=== PATIENT | male | born 1940 | race Caucasian/White ===

== ENCOUNTER 2018-05-19 13:58 | Inpatient (IN) | payer MEDICARE ==
[~2018-05-19] VITALS: Ht 172.7 cm; Wt 63.8 kg
[~2018-05-19 13:58] MED LIST: AMLO-150 PO; CARV12.52 PO; CLON0.2T PO; HYDR-3245 PO; IRBE300T16 PO; TIZA2CAP2 PO
[2018-05-19] MEDS ORDERED: hydrALAzine 20 MG/ML, 1ML IV ONE (14:30)
[2018-05-19] MEDS ORDERED: hydrALAzine 20 MG/ML, 1ML ONE (14:53)
[2018-05-19 14:54] LABS: BASOPHILS % (AUTO) 0 % (0-1); EOSINOPHILS # (AUTO) 0.03 x10^3/uL (0-0.4); EOSINOPHILS % (AUTO) 0 % (1-7); LYMPHOCYTES # (AUTO) 0.85 x10^3/uL (1-3.4); LYMPHOCYTES % (AUTO) 6 % (22-44); MD NO; MEAN CORPUSCULAR HEMOGLOBIN 28.6 pg (27.5-34.5); MEAN CORPUSCULAR HGB CONC 33.1 g/dL (33.2-36.2); MEAN CORPUSCULAR VOLUME 86.5 fL (81-97); MEAN PLATELET VOLUME 8.6 fL (7.4-10.4); MONOCYTES % (AUTO) 1 % (2-9); NEUTROPHILS # (AUTO) 12.67 x10^3/uL (1.8-6.8); NEUTROPHILS % (AUTO) 93 % (42-75); PLATELET COUNT 152 x10^3/uL (130-400); RED BLOOD COUNT 5.43 x10^6/uL (4.38-5.82); RED CELL DISTRIBUTION WIDTH 15.6 % (9.4-14.8)
[2018-05-19 14:59] LABS: ALANINE AMINOTRANSFERASE 19 U/L (12-78); ALBUMIN 3.6 g/dL (3.4-5.0); ANION GAP 9 mmol/L (5-15); CALCIUM 8.1 mg/dL (8.5-10.1); CHLORIDE 109 mmol/L (98-107)
[2018-05-19 15:04] LABS: ALKALINE PHOSPHATASE 106 U/L (45-117); BILIRUBIN,TOTAL 0.5 mg/dL (0.2-1.0); TOTAL PROTEIN 7.2 g/dL (6.4-8.2); TROPONIN I < 0.015 ng/mL (0.000-0.045)
[2018-05-19 15:42] LABS: INTERNATIONAL NORMALIZED RATIO 1.03 (0.93-1.1); PROTHROMBIN TIME 10.9 Seconds (9.6-11.5)
[2018-05-19] MEDS ORDERED: TIZANIDINE 2MG TABLET PO PRN (16:30)
[2018-05-19] MEDS ORDERED: LABETALOL 5MG/ML, 20ML IV PRN (17:00)
[2018-05-19 17:11] VITALS: BP 148/74
[2018-05-19 17:14] LABS: HEMOGLOBIN A1C 5.9 % (4.2-6.3)
[2018-05-19 19:00] VITALS: BP 163/82
[2018-05-19 20:58] VITALS: BP 173/91
[2018-05-19] MEDS: CARVEDILOL 12.5 MG TABLET PO SCH (20:59)
[2018-05-19] MEDS ORDERED: TEMPLATE NON-FORMULARY MED. (Carvedilol** 12.5 MG) PO SCH (21:00)
[2018-05-19] MEDS: HYDROcodone/APAP 10/325 MG TABLET PO PRN (21:13)
[2018-05-19] MEDS ORDERED: CALCIUM CARBONATE 500 MG TAB.CHEW PO PRN (21:30)
[2018-05-19 22:31] VITALS: BP 140/79
[2018-05-19 23:42] VITALS: BP 123/75
[2018-05-20] VITALS (7 sets, daily range): BP systolic 107–178; BP diastolic 60–93
[2018-05-20 04:58] LABS: BASOPHILS # (AUTO) 0.02 x10^3/uL (0-0.1); BASOPHILS % (AUTO) 0 % (0-1); EOSINOPHILS # (AUTO) 0.17 x10^3/uL (0-0.4); EOSINOPHILS % (AUTO) 1 % (1-7); LYMPHOCYTES # (AUTO) 1.33 x10^3/uL (1-3.4); LYMPHOCYTES % (AUTO) 10 % (22-44); MD NO; MEAN CORPUSCULAR HEMOGLOBIN 28.8 pg (27.5-34.5); MEAN CORPUSCULAR HGB CONC 33.2 g/dL (33.2-36.2); MEAN CORPUSCULAR VOLUME 86.8 fL (81-97); MEAN PLATELET VOLUME 7.9 fL (7.4-10.4); MONOCYTES # (AUTO) 1.15 x10^3/uL (0.2-0.8); MONOCYTES % (AUTO) 9 % (2-9); NEUTROPHILS # (AUTO) 10.53 x10^3/uL (1.8-6.8); NEUTROPHILS % (AUTO) 80 % (42-75); PLATELET COUNT 240 x10^3/uL (130-400); RED BLOOD COUNT 5.12 x10^6/uL (4.38-5.82); RED CELL DISTRIBUTION WIDTH 15.8 % (9.4-14.8)
[2018-05-20 05:07] LABS: ALBUMIN 3.1 g/dL (3.4-5.0); ANION GAP 11 mmol/L (5-15); CALCIUM 8.1 mg/dL (8.5-10.1); CHLORIDE 111 mmol/L (98-107)
[2018-05-20 05:21] LABS: ALANINE AMINOTRANSFERASE 15 U/L (12-78); ALKALINE PHOSPHATASE 93 U/L (45-117); BILIRUBIN,TOTAL 0.7 mg/dL (0.2-1.0); CHOL/HDL RATIO 3.3; CHOLESTEROL, TOTAL 153 mg/dL (140-239); CREATININE 1.13 mg/dL (0.7-1.3); HDL CHOL % 30 % (26-37); HDL CHOLESTEROL (DIRECT) 46 mg/dL (40-60); LDL CHOLESTEROL,CALCULATED 78 mg/dL (54-169); LDL/HDL RATIO 1.7 (0.5-3.0); THYROID STIMULATING HORMONE 0.527 mIU/L (0.358-3.740); TOTAL PROTEIN 6.3 g/dL (6.4-8.2); TRIGLYCERIDES 145 mg/dL (50-200); VLDL CHOLESTEROL 29 mg/dL (0-25)
[2018-05-20] MEDS: AMLODIPINE 5 MG TABLET PO SCH (08:34)
[2018-05-20] MEDS: CARVEDILOL 12.5 MG TABLET PO SCH ×2 (08:34→19:47)
[2018-05-20] MEDS: IRBESARTAN 300 MG TABLET PO SCH (08:35)
[2018-05-20] MEDS ORDERED: ASPIRIN 81 MG TABLET CHEW PO/NG SCH (09:00)
[2018-05-20] MEDS ORDERED: ASPI325T17 PO (11:06)
[2018-05-20] MEDS ORDERED: ATOR10TA9 PO (11:06)
[2018-05-20] MEDS ORDERED: MIDAZOLAM 1 MG/ML, 5ML ONE (11:25)
[2018-05-20] MEDS ORDERED: NALOXONE 1 MG/ML, 2ML ONE (11:25)
[2018-05-20] MEDS ORDERED: FLUMAZENIL 0.1 MG/1 ML, 5ML ONE (11:25)
[2018-05-20] MEDS ORDERED: FENTANYL PF 100 MCG/2ML ONE ×2 (11:25)
[2018-05-20] MEDS: HYDROcodone/APAP 10/325 MG TABLET PO PRN (20:07)
[2018-05-20 20:57] LABS: MICROSCOPIC NOT IND
[2018-05-20] MEDS ORDERED: ATORVASTATIN 40 MG TABLET PO SCH (21:00)
[2018-05-20 21:07] LABS: CULTURE INDICATED? NO
[2018-05-21 02:58] VITALS: BP 147/78
[2018-05-21 05:54] LABS: BASOPHILS # (AUTO) 0.06 x10^3/uL (0-0.1); BASOPHILS % (AUTO) 1 % (0-1); EOSINOPHILS % (AUTO) 3 % (1-7); LYMPHOCYTES # (AUTO) 1.84 x10^3/uL (1-3.4); LYMPHOCYTES % (AUTO) 21 % (22-44); MD NO; MEAN CORPUSCULAR HGB CONC 33.5 g/dL (33.2-36.2); MEAN CORPUSCULAR VOLUME 86.6 fL (81-97); MEAN PLATELET VOLUME 8.1 fL (7.4-10.4); MONOCYTES # (AUTO) 0.96 x10^3/uL (0.2-0.8); MONOCYTES % (AUTO) 11 % (2-9); NEUTROPHILS # (AUTO) 5.79 x10^3/uL (1.8-6.8); NEUTROPHILS % (AUTO) 65 % (42-75); PLATELET COUNT 220 x10^3/uL (130-400); RED BLOOD COUNT 5.07 x10^6/uL (4.38-5.82); RED CELL DISTRIBUTION WIDTH 15.5 % (9.4-14.8)
[2018-05-21] MEDS ORDERED: ASPIRIN 325 MG TABLET EC PO SCH (06:00)
[2018-05-21 06:42] VITALS: BP 188/101
[2018-05-21] MEDS: IRBESARTAN 300 MG TABLET PO SCH (08:03)
[2018-05-21] MEDS: AMLODIPINE 5 MG TABLET PO SCH (08:03)
[2018-05-21] MEDS: CARVEDILOL 12.5 MG TABLET PO SCH (08:04)
[2018-05-21 09:13] VITALS: BP 127/82
[2018-05-21] MEDS ORDERED: LORazepam 2 MG/ML, 1ML IVPush ONE (11:30)
[2018-05-21] MEDS ORDERED: OXYcodone IR 5MG TABLET PO ONE (11:30)
[2018-05-21 13:31] VITALS: BP 149/90
[2018-05-21] MEDS ORDERED: IRBE150T25 PO (16:30)
[2018-05-21] MEDS ORDERED: AMLO-150 PO (16:30)
[2018-05-21] MEDS ORDERED: ATOR40TA78 PO (16:30)
== END 2018-05-21 17:43 | disposition home or self-care (01) | DRG 69 ==
LOC: ED 14:46 → EDIP 15:45 → 4EST 16:47
PROVIDERS: ADMIT Internal Medicine; ATTEND Family Medicine
DX: G45.9 Transient cerebral ischemic attack, unspecified (principal); D68.69 Other thrombophilia; I16.9 Hypertensive crisis, unspecified; I48.91 Unspecified atrial fibrillation; G89.29 Other chronic pain; R73.9 Hyperglycemia, unspecified; M54.10 Radiculopathy, site unspecified; Z96.659 Presence of unspecified artificial knee joint; I11.9 Hypertensive heart disease without heart failure; R47.1 Dysarthria and anarthria; M48.02 Spinal stenosis, cervical region; E78.5 Hyperlipidemia, unspecified; Z90.79 Acquired absence of other genital organ(s); Z85.46 Personal history of malignant neoplasm of prostate; Z87.891 Personal history of nicotine dependence
CPT/HCPCS: 36415; 70450; 70551; 71045; 72141; 80053; 80061; 81003; 83036; 84443; 84484; 85025; 85610; 85730; 93005; 93306; 93880; 96374; 99156; 99157; 99285; G0378; J2250; J3010; J0360; J2060; J2310

== ENCOUNTER 2018-06-18 23:09 | Emergency (ER) | payer MEDICARE ==
[~2018-06-18 23:09] MED LIST changes: +ASPI325T17 PO; +ATOR10TA9 PO; +ATOR40TA78 PO; +IRBE150T25 PO
--- NOTE | 2018-06-18 23:33 | NUR ---
BIB [facility] FOR STROKE LIKE SYMPTOMS PER FAMILY, PT WAS FALLING ASLEEP AND WOKE HIM UP, HE HAD SLURRED SPEECH AND WAS NOT ALERT/ORIENTED. PT NOW SPEAKING AND ALERT. EKG IN PROCESS, PER EMS S/S RESOLVED. PT HAS RESIDUAL LEFT SIDE DRIFT/WEAKNESS IN UPPER EXT/
--- NOTE | 2018-06-18 23:44 | NUR ---
report to steffanie brunson at bs.
--- NOTE | 2018-06-18 23:47 | NUR ---
Recieved bedside report from BOBBY Stark. All questions answered. Assuming care of this pt. Pt is AOX4 at this time. Pt has mild weakness of left upper extremity that is pt's baseline from his stroke one month ago. Pt's at bedside. Provided pt warm blankets and call light within reach. No needs requested at this time.
[2018-06-18 23:49] LABS: BASOPHILS # (AUTO) 0.01 x10^3/uL (0-0.1); BASOPHILS % (AUTO) 0 % (0-1); EOSINOPHILS # (AUTO) 0.43 x10^3/uL (0-0.4); EOSINOPHILS % (AUTO) 4 % (1-7); LYMPHOCYTES # (AUTO) 1.74 x10^3/uL (1-3.4); LYMPHOCYTES % (AUTO) 14 % (22-44); MD NO; MEAN CORPUSCULAR HEMOGLOBIN 29.3 pg (27.5-34.5); MEAN CORPUSCULAR HGB CONC 34.3 g/dL (33.2-36.2); MEAN CORPUSCULAR VOLUME 85.6 fL (81-97); MEAN PLATELET VOLUME 7.1 fL (7.4-10.4); MONOCYTES # (AUTO) 1.44 x10^3/uL (0.2-0.8); MONOCYTES % (AUTO) 12 % (2-9); NEUTROPHILS # (AUTO) 8.47 x10^3/uL (1.8-6.8); NEUTROPHILS % (AUTO) 70 % (42-75); PLATELET COUNT 236 x10^3/uL (130-400); RED BLOOD COUNT 5.05 x10^6/uL (4.38-5.82); RED CELL DISTRIBUTION WIDTH 15.1 % (9.4-14.8)
[2018-06-18 23:59] LABS: INTERNATIONAL NORMALIZED RATIO 0.94 (0.93-1.1)
[2018-06-19 00:40] VITALS: BP 133/90
--- NOTE | 2018-06-19 00:40 | NUR ---
Patient and spouse given discharge instructions and they have confirmed that they understand the instructions. Patient ambulatory with steady gait. Pt's neighbors came to ED to drive pt and his spouse home. Pt left with discharge paperwork and all personal belongings.
== END 2018-06-19 00:42 | disposition home or self-care (01) ==
LOC: ED 23:16
DX: R47.81 Slurred speech (principal); I10 Essential (primary) hypertension; Z86.73 Personal history of transient ischemic attack (TIA), and cerebral infarction without residual deficits
CPT/HCPCS: 36415; 70450; 80047; 85025; 85610; 85730; 93005; 99284

== ENCOUNTER → 2018-07-01 | Outpatient (CLI) | payer MEDICARE ==
[~2018-07-01] MED LIST changes: +ATOR40TA PO; +FENO105T3 PO; +PRED5TAB PO; +ZOLP10TA PO
[2018-07-01 12:16] LABS: BASOPHILS # (AUTO) 0.04 x10^3/uL (0-0.1); BASOPHILS % (AUTO) 0 % (0-1); EOSINOPHILS % (AUTO) 3 % (1-7); LYMPHOCYTES # (AUTO) 1.68 x10^3/uL (1-3.4); LYMPHOCYTES % (AUTO) 12 % (22-44); MD NO; MEAN CORPUSCULAR HEMOGLOBIN 28.8 pg (27.5-34.5); MEAN CORPUSCULAR HGB CONC 33.4 g/dL (33.2-36.2); MEAN CORPUSCULAR VOLUME 86.2 fL (81-97); MONOCYTES # (AUTO) 1.37 x10^3/uL (0.2-0.8); MONOCYTES % (AUTO) 10 % (2-9); NEUTROPHILS # (AUTO) 10.06 x10^3/uL (1.8-6.8); NEUTROPHILS % (AUTO) 74 % (42-75); PLATELET COUNT 289 x10^3/uL (130-400); RED BLOOD COUNT 5.67 x10^6/uL (4.38-5.82); RED CELL DISTRIBUTION WIDTH 15.7 % (9.4-14.8)
[2018-07-01 12:21] LABS: MICROSCOPIC INDICATED
[2018-07-01 12:24] LABS: INTERNATIONAL NORMALIZED RATIO 0.98 (0.93-1.1); PROTHROMBIN TIME 10.4 Seconds (9.6-11.5)
[2018-07-01 12:27] LABS: ALANINE AMINOTRANSFERASE 24 U/L (12-78); ALBUMIN 3.6 g/dL (3.4-5.0); ANION GAP 8 mmol/L (5-15); CALCIUM 8.6 mg/dL (8.5-10.1); CHLORIDE 109 mmol/L (98-107)
[2018-07-01 12:29] LABS: ALKALINE PHOSPHATASE 123 U/L (45-117); BILIRUBIN,TOTAL 0.6 mg/dL (0.2-1.0); TOTAL PROTEIN 7.6 g/dL (6.4-8.2)
[2018-07-01 12:53] LABS: CULTURE INDICATED? NO
== END | disposition home or self-care (01) ==
LOC: STAR 11:00
PROVIDERS: ATTEND Neurological Surgery
DX: M47.812 Spondylosis without myelopathy or radiculopathy, cervical region (principal)
CPT/HCPCS: 36415; 71046; 72050; 80053; 81001; 85025; 85610; 85730; 93005

== ENCOUNTER 2018-07-14 07:19 | Inpatient (IN) | payer MEDICARE ==
[~2018-07-14] VITALS: Ht 177.8 cm; Wt 65.5 kg
[~2018-07-14 07:19] MED LIST changes: +BACITRACIN 50,000 UNIT ONE; +BUPIVACAINE/PF 0.25% ONE; +BUPIVACAINE/PF 0.5% ONE; +BUPIVACAINE/PF-EPI 0.5% 1:200K ONE; +EPINEPHRINE 1 MG/ML, 1ML ONE; +THROMBIN 5,000 UNIT VIAL TP ONE
[2018-07-14] MEDS ORDERED: LACTATED RINGERS 1,000 ML IV SCH (08:22)
[2018-07-14 08:57] LABS: BASOPHILS # (AUTO) 0.09 x10^3/uL (0-0.1); BASOPHILS % (AUTO) 1 % (0-1); EOSINOPHILS # (AUTO) 0.22 x10^3/uL (0-0.4); EOSINOPHILS % (AUTO) 2 % (1-7); LYMPHOCYTES # (AUTO) 1.06 x10^3/uL (1-3.4); LYMPHOCYTES % (AUTO) 10 % (22-44); MD NO; MEAN CORPUSCULAR HEMOGLOBIN 28.6 pg (27.5-34.5); MEAN CORPUSCULAR HGB CONC 33.2 g/dL (33.2-36.2); MEAN CORPUSCULAR VOLUME 86.2 fL (81-97); MONOCYTES # (AUTO) 1.26 x10^3/uL (0.2-0.8); MONOCYTES % (AUTO) 12 % (2-9); NEUTROPHILS # (AUTO) 7.92 x10^3/uL (1.8-6.8); NEUTROPHILS % (AUTO) 75 % (42-75); PLATELET COUNT 236 x10^3/uL (130-400); RED CELL DISTRIBUTION WIDTH 15.5 % (9.4-14.8)
[2018-07-14] MEDS ORDERED: GABAPENTIN 300 MG CAPSULE PO ONE (09:00)
[2018-07-14] MEDS ORDERED: ACETAMINOPHEN 500 MG TABLET PO ONE (09:00)
[2018-07-14 09:09] LABS: ALANINE AMINOTRANSFERASE 17 U/L (12-78); ALBUMIN 3.1 g/dL (3.4-5.0); ANION GAP 7 mmol/L (5-15); CALCIUM 8.4 mg/dL (8.5-10.1); CHLORIDE 112 mmol/L (98-107); CREATININE 1.18 mg/dL (0.7-1.3)
[2018-07-14 09:11] LABS: ALKALINE PHOSPHATASE 95 U/L (45-117); TOTAL PROTEIN 6.1 g/dL (6.4-8.2)
[2018-07-14] MEDS ORDERED: PROPOFOL 10 MG/ML, 20ML ONE (11:44)
[2018-07-14] MEDS ORDERED: FENTANYL PF 250 MCG/5ML ONE (13:59)
[2018-07-14] MEDS ORDERED: MIDAZOLAM 1 MG/ML, 2ML ONE (13:59)
[2018-07-14] MEDS ORDERED: ACETAMINOPHEN 500 MG TABLET ONE (14:29)
[2018-07-14] MEDS ORDERED: GABAPENTIN 300 MG CAPSULE ONE (14:29)
[2018-07-14] MEDS ORDERED: DIGOXIN 0.25 MG/ML, 2ML ONE (15:39)
[2018-07-14] MEDS ORDERED: DIGOXIN 0.25 MG/ML, 2ML IVPush ONE (16:30)
[2018-07-14] MEDS ORDERED: MAGNESIUM SULFATE PMX 2GM/50ML 50 ML IV ONE (16:30)
[2018-07-14 16:48] VITALS: BP 126/83
[2018-07-14] MEDS ORDERED: GABAPENTIN 300 MG CAPSULE PO PRN (17:30)
[2018-07-14] MEDS ORDERED: ZOLPIDEM 10MG TABLET PO PRN (17:30)
[2018-07-14] MEDS ORDERED: BACLOFEN 10 MG TABLET PO PRN (17:30)
[2018-07-14] MEDS ORDERED: BISACODYL 10 MG SUPP PR PRN (17:30)
[2018-07-14] MEDS ORDERED: DOCUSATE 100 MG CAPSULE PO PRN (17:30)
[2018-07-14] MEDS ORDERED: hydrALAzine 20 MG/ML, 1ML IVPush PRN (17:30)
[2018-07-14] MEDS ORDERED: POLYETHYLENE GLYCOL 17 GM PACKET PO PRN (17:30)
[2018-07-14] MEDS ORDERED: ENALAPRILAT 1.25 MG/ML, 2ML IVPush PRN (17:30)
[2018-07-14] MEDS: SOTALOL 120MG TABLET PO SCH (17:31)
[2018-07-14 17:40] LABS: INTERNATIONAL NORMALIZED RATIO 1.04 (0.93-1.1)
[2018-07-14 20:42] VITALS: BP 132/85
[2018-07-14] MEDS: IRBESARTAN 150 MG TABLET PO SCH (20:46)
[2018-07-14] MEDS: CARVEDILOL 12.5 MG TABLET PO SCH (20:46)
[2018-07-14] MEDS: AMLODIPINE 5 MG TABLET PO SCH (20:47)
[2018-07-14] MEDS: APIXABAN 5 MG TABLET PO SCH (21:49)
[2018-07-14] MEDS: ATORVASTATIN 40 MG TABLET PO SCH (21:49)
[2018-07-15 03:50] VITALS: BP 124/76
[2018-07-15 04:40] LABS: BASOPHILS # (AUTO) 0.05 x10^3/uL (0-0.1); BASOPHILS % (AUTO) 1 % (0-1); EOSINOPHILS # (AUTO) 0.29 x10^3/uL (0-0.4); EOSINOPHILS % (AUTO) 4 % (1-7); LYMPHOCYTES % (AUTO) 17 % (22-44); MD NO; MEAN CORPUSCULAR HEMOGLOBIN 29.7 pg (27.5-34.5); MEAN CORPUSCULAR HGB CONC 33.7 g/dL (33.2-36.2); MEAN PLATELET VOLUME 7.2 fL (7.4-10.4); MONOCYTES # (AUTO) 1.15 x10^3/uL (0.2-0.8); MONOCYTES % (AUTO) 15 % (2-9); NEUTROPHILS # (AUTO) 4.79 x10^3/uL (1.8-6.8); NEUTROPHILS % (AUTO) 63 % (42-75); PLATELET COUNT 228 x10^3/uL (130-400); RED BLOOD COUNT 4.88 x10^6/uL (4.38-5.82); RED CELL DISTRIBUTION WIDTH 15.3 % (9.4-14.8)
[2018-07-15 04:50] LABS: CHLORIDE 112 mmol/L (98-107)
[2018-07-15 04:58] LABS: ALANINE AMINOTRANSFERASE 15 U/L (12-78); ALBUMIN 2.8 g/dL (3.4-5.0); ALKALINE PHOSPHATASE 85 U/L (45-117); ANION GAP 7 mmol/L (5-15); BILIRUBIN,TOTAL 0.6 mg/dL (0.2-1.0); CHOL/HDL RATIO 2.7; CHOLESTEROL, TOTAL 102 mg/dL (140-239); CREATININE 1.02 mg/dL (0.7-1.3); HDL CHOL % 37 % (26-37); HDL CHOLESTEROL (DIRECT) 38 mg/dL (40-60); LDL CHOLESTEROL,CALCULATED 39 mg/dL (54-169); TOTAL PROTEIN 6.1 g/dL (6.4-8.2); TRIGLYCERIDES 123 mg/dL (50-200); VLDL CHOLESTEROL 25 mg/dL (0-25)
[2018-07-15] MEDS: SOTALOL 120MG TABLET PO SCH ×2 (05:33→17:12)
[2018-07-15 07:59] VITALS: BP 137/83
[2018-07-15] MEDS: FENOFIBRATE 54 MG TABLET PO SCH (09:00)
[2018-07-15] MEDS: IRBESARTAN 150 MG TABLET PO SCH ×2 (09:53→21:35)
[2018-07-15] MEDS: AMLODIPINE 5 MG TABLET PO SCH ×2 (09:53→21:35)
[2018-07-15] MEDS: APIXABAN 5 MG TABLET PO SCH ×2 (09:54→21:34)
[2018-07-15 13:13] VITALS: BP 119/74
[2018-07-15] MEDS: CARVEDILOL 12.5 MG TABLET PO SCH (14:00)
[2018-07-15 17:11] VITALS: BP 142/94
[2018-07-15] MEDS: ACETAMINOPHEN 325 MG TABLET PO PRN (18:05)
[2018-07-15 19:51] VITALS: BP 120/79
[2018-07-15] MEDS: ATORVASTATIN 40 MG TABLET PO SCH (21:34)
[2018-07-15] MEDS: HYDROcodone/APAP 10/325 MG TABLET PO PRN (21:35)
[2018-07-16 01:35] VITALS: BP 109/63
[2018-07-16] MEDS: ACETAMINOPHEN 325 MG TABLET PO PRN (02:30)
[2018-07-16 05:24] LABS: ALBUMIN 2.7 g/dL (3.4-5.0); ANION GAP 9 mmol/L (5-15); CALCIUM 7.9 mg/dL (8.5-10.1); CHLORIDE 110 mmol/L (98-107)
[2018-07-16 05:25] LABS: CREATININE 1.11 mg/dL (0.7-1.3)
[2018-07-16 07:00] VITALS: BP 123/79
[2018-07-16] MEDS: APIXABAN 5 MG TABLET PO SCH ×2 (08:06→20:24)
[2018-07-16] MEDS: SOTALOL 120MG TABLET PO SCH (08:06)
[2018-07-16] MEDS: IRBESARTAN 150 MG TABLET PO SCH ×2 (08:06→20:24)
[2018-07-16] MEDS: FENOFIBRATE 54 MG TABLET PO SCH (08:06)
[2018-07-16] MEDS: AMLODIPINE 5 MG TABLET PO SCH (08:21)
[2018-07-16 13:36] VITALS: BP 126/83
[2018-07-16] MEDS: SOTALOL 80MG TABLET PO SCH (18:19)
[2018-07-16 20:05] VITALS: BP 114/72
[2018-07-16] MEDS: ATORVASTATIN 40 MG TABLET PO SCH (20:23)
[2018-07-16] MEDS: HYDROcodone/APAP 10/325 MG TABLET PO PRN (20:23)
[2018-07-17 04:00] VITALS: BP 132/79
[2018-07-17 05:01] LABS: ANION GAP 8 mmol/L (5-15); CALCIUM 8.7 mg/dL (8.5-10.1); CHLORIDE 107 mmol/L (98-107); CREATININE 1.21 mg/dL (0.7-1.3)
[2018-07-17 07:05] VITALS: BP 134/73
[2018-07-17] MEDS: FENOFIBRATE 54 MG TABLET PO SCH (07:41)
[2018-07-17] MEDS: APIXABAN 5 MG TABLET PO SCH (07:42)
[2018-07-17] MEDS: AMLODIPINE 5 MG TABLET PO SCH (07:42)
[2018-07-17] MEDS: IRBESARTAN 150 MG TABLET PO SCH (07:42)
[2018-07-17] MEDS: SOTALOL 80MG TABLET PO SCH (07:42)
[2018-07-17] MEDS ORDERED: SOTA80TA18 PO (10:11)
[2018-07-17] MEDS ORDERED: APIX5TAB PO (10:11)
== END 2018-07-17 12:45 | disposition home or self-care (01) | DRG 309 ==
LOC: ORIP 07:19 → 5SO 16:31 → DCLOUNGE 07-17 12:37
PROVIDERS: ADMIT Neurological Surgery; ATTEND Neurological Surgery
DX: I48.0 Paroxysmal atrial fibrillation (principal); D68.59 Other primary thrombophilia; I10 Essential (primary) hypertension; E78.5 Hyperlipidemia, unspecified; G89.29 Other chronic pain; I11.9 Hypertensive heart disease without heart failure; M48.02 Spinal stenosis, cervical region; Z53.9 Procedure and treatment not carried out, unspecified reason; Z85.46 Personal history of malignant neoplasm of prostate; Z86.73 Personal history of transient ischemic attack (TIA), and cerebral infarction without residual deficits; Z87.891 Personal history of nicotine dependence; Z90.79 Acquired absence of other genital organ(s); I34.0 Nonrheumatic mitral (valve) insufficiency
CPT/HCPCS: 36415; 71045; 80048; 80053; 80061; 82040; 83735; 84100; 84443; 85025; 85610; 86850; 86900; 93005; 93312; 93321; 93325; G0378; J0171; J2250; J2704; J3010; J3490; J1160; J3475; J7120

== ENCOUNTER → 2018-09-01 | Outpatient (CLI) | payer MEDICARE ==
[~2018-09-01] MED LIST changes: +APIX5TAB PO; -BACITRACIN 50,000 UNIT ONE; -BUPIVACAINE/PF 0.25% ONE; -BUPIVACAINE/PF 0.5% ONE; -BUPIVACAINE/PF-EPI 0.5% 1:200K ONE; -EPINEPHRINE 1 MG/ML, 1ML ONE; +SOTA80TA18 PO; -THROMBIN 5,000 UNIT VIAL TP ONE
[2018-09-01 11:11] LABS: BASOPHILS # (AUTO) 0.02 x10^3/uL (0-0.1); BASOPHILS % (AUTO) 0 % (0-1); EOSINOPHILS # (AUTO) 0.38 x10^3/uL (0-0.4); EOSINOPHILS % (AUTO) 4 % (1-7); LYMPHOCYTES % (AUTO) 11 % (22-44); MD NO; MEAN CORPUSCULAR HEMOGLOBIN 29.3 pg (27.5-34.5); MEAN CORPUSCULAR HGB CONC 33.4 g/dL (33.2-36.2); MEAN CORPUSCULAR VOLUME 87.7 fL (81-97); MEAN PLATELET VOLUME 7.3 fL (7.4-10.4); MONOCYTES # (AUTO) 1.37 x10^3/uL (0.2-0.8); MONOCYTES % (AUTO) 12 % (2-9); NEUTROPHILS # (AUTO) 8.11 x10^3/uL (1.8-6.8); NEUTROPHILS % (AUTO) 73 % (42-75); PLATELET COUNT 272 x10^3/uL (130-400); RED BLOOD COUNT 5.57 x10^6/uL (4.38-5.82); RED CELL DISTRIBUTION WIDTH 14.9 % (9.4-14.8)
[2018-09-01 11:21] LABS: MICROSCOPIC NOT IND
[2018-09-01 11:21] LABS: INTERNATIONAL NORMALIZED RATIO 1.02 (0.93-1.1); PROTHROMBIN TIME 10.7 Seconds (9.6-11.5)
[2018-09-01 11:23] LABS: ALBUMIN 3.8 g/dL (3.4-5.0); ANION GAP 5 mmol/L (5-15); CALCIUM 9.3 mg/dL (8.5-10.1); CHLORIDE 103 mmol/L (98-107)
[2018-09-01 11:26] LABS: CULTURE INDICATED? NO
[2018-09-01 11:27] LABS: ALANINE AMINOTRANSFERASE 20 U/L (12-78); ALKALINE PHOSPHATASE 104 U/L (45-117); BILIRUBIN,TOTAL 0.8 mg/dL (0.2-1.0); CREATININE 1.32 mg/dL (0.7-1.3); TOTAL PROTEIN 7.7 g/dL (6.4-8.2)
== END | disposition home or self-care (01) ==
LOC: STAR 09:56
PROVIDERS: ATTEND Neurological Surgery
DX: Z01.818 Encounter for other preprocedural examination (principal); M47.812 Spondylosis without myelopathy or radiculopathy, cervical region; Z85.46 Personal history of malignant neoplasm of prostate
CPT/HCPCS: 36415; 80053; 81003; 85025; 85610; 85730; 93005

== ENCOUNTER 2018-09-09 07:19 | Inpatient (IN) | payer MEDICARE ==
[~2018-09-09] VITALS: Ht 177.8 cm; Wt 72.2 kg
[~2018-09-09 07:19] MED LIST changes: +ALLO300T PO; +ASCO10004 PO; +BACITRACIN 50,000 UNIT ONE; +BUPIVACAINE/PF-EPI 0.5% 1:200K ONE; +CALC-690 PO; +CYAN10005 PO; +FAMO20TA37 PO; +FISH1CAP PO; +GABA300C10 PO; +INDO50CA5 PO; +MULT1TAB60 PO; +NAPR-685 PO; +OMEP40CA6 PO; +PROB500T22 PO; +SOTA80TA PO; +THROMBIN 20,000 UNIT VIAL TP ONE; +VITA400C42 PO
[2018-09-09] MEDS ORDERED: LACTATED RINGERS 1,000 ML IV SCH (08:20)
[2018-09-09] MEDS ORDERED: LIDOCAINE-MPF 1%, 2ML INFIL ONE (08:30)
[2018-09-09] MEDS ORDERED: IRBE75TA10 PO (09:18)
[2018-09-09] MEDS ORDERED: MIDAZOLAM 1 MG/ML, 2ML ONE (09:39)
[2018-09-09] MEDS ORDERED: FENTANYL PF 250 MCG/5ML ONE (09:39)
[2018-09-09 09:51] LABS: INTERNATIONAL NORMALIZED RATIO 1.03 (0.93-1.1); PROTHROMBIN TIME 10.8 Seconds (9.6-11.5)
[2018-09-09] MEDS ORDERED: ONDANSETRON 2MG/ML, 2ML ONE (11:24)
[2018-09-09] MEDS ORDERED: SUCCINYLCHOLINE 20 MG/ML, 10ML ONE (11:24)
[2018-09-09] MEDS ORDERED: CEFAZOLIN 1,000 MG ONE (11:24)
[2018-09-09] MEDS ORDERED: DEXAMETHASONE 4 MG/ML, 5ML ONE (11:24)
[2018-09-09] MEDS ORDERED: PROPOFOL 10 MG/ML, 20ML ONE (11:24)
[2018-09-09] MEDS ORDERED: ONDANSETRON 2MG/ML, 2ML IVPush PRN ×2 (13:00)
[2018-09-09] MEDS ORDERED: DIPHENHYDRAMINE 50 MG/ML, 1ML IVPush PRN (13:00)
[2018-09-09] MEDS ORDERED: KETOROLAC 30 MG/1 ML IV PRN (13:00)
[2018-09-09] MEDS ORDERED: LABETALOL 5MG/ML, 20ML IV PRN (13:00)
[2018-09-09] MEDS ORDERED: MEPERIDINE/PF 100 MG/ML IM PRN (13:00)
[2018-09-09] MEDS ORDERED: MEPERIDINE/PF 25MG/0.5ML IVPush PRN (13:00)
[2018-09-09] MEDS ORDERED: ALBUTEROL SULFATE 2.5 MG/3 ML NPPB PRN (13:00)
[2018-09-09] MEDS ORDERED: DIAZEPAM 5 MG TABLET PO PRN (13:00)
[2018-09-09] MEDS ORDERED: hydrALAzine 20 MG/ML, 1ML IV PRN (13:00)
[2018-09-09] MEDS ORDERED: HYDROcodone/APAP 10/325 MG TABLET PO PRN (13:00)
[2018-09-09] MEDS ORDERED: HYDROmorphone 1 MG/ML, 1ML INJ IVPush PRN (13:00)
[2018-09-09] MEDS ORDERED: METOCLOPRAMIDE 5 MG/ML, 2ML IV PRN (13:00)
[2018-09-09] MEDS ORDERED: MAGNESIUM HYDROXIDE 8%, 30ML UDC PO PRN (13:00)
[2018-09-09] MEDS ORDERED: OMEPRAZOLE 20 MG CAPSULE.DR PO PRN (13:00)
[2018-09-09] MEDS ORDERED: PROMETHAZINE 25 MG/ML, 1ML IV PRN (13:00)
[2018-09-09] MEDS ORDERED: OXYcodone 5 MG/5 ML ORAL.SOL UDC PO PRN (13:00)
[2018-09-09] MEDS ORDERED: BISACODYL 10 MG SUPP PR PRN (13:00)
[2018-09-09] MEDS ORDERED: PHARMACY MAY ADJ FOR RENAL FX MC PRN (13:00)
[2018-09-09] MEDS ORDERED: HYDROmorphone PCA 30 MG/30 ML IV PRN (13:00)
[2018-09-09] MEDS ORDERED: FENTANYL PF 100 MCG/2ML ONE ×2 (13:02→13:17)
[2018-09-09] MEDS: FENTANYL PF 100 MCG/2ML IV PRN ×3 (13:05→13:39)
[2018-09-09] MEDS ORDERED: OXYcodone 5 MG/5 ML ORAL.SOL UDC ONE (13:30)
[2018-09-09] MEDS ORDERED: HYDROmorphone 1 MG/ML, 1ML VIAL ONE (13:30)
[2018-09-09] MEDS: HYDROmorphone 1 MG/ML, 1ML INJ IV PRN ×2 (13:33→13:54)
[2018-09-09] MEDS: NS + 20MEQ KCL 1,000 ML IV SCH (16:45)
[2018-09-09] MEDS: TIZANIDINE 4MG TABLET PO SCH ×2 (16:45→23:01)
[2018-09-09] MEDS: CEFAZOLIN PMX 1GM/50ML 50 ML IVPB SCH (19:41)
[2018-09-09 20:20] VITALS: BP 119/77
[2018-09-09] MEDS: SODIUM CHLORIDE FLUSH 10ML SYR IVF SCH (21:00)
[2018-09-09] MEDS: AMLODIPINE 5 MG TABLET PO SCH (21:00)
[2018-09-09] MEDS: IRBESARTAN 150 MG TABLET PO SCH (21:00)
[2018-09-09] MEDS ORDERED: ATORVASTATIN 40 MG TABLET PO SCH (21:00)
[2018-09-09] MEDS: SOTALOL 80MG TABLET PO SCH (21:00)
[2018-09-09] MEDS ORDERED: ZOLPIDEM 10MG TABLET PO PRN (21:00)
[2018-09-09] MEDS ORDERED: IRBESARTAN 150 MG TABLET PO SCH (21:00)
[2018-09-10 00:03] VITALS: BP 121/50
[2018-09-10] MEDS: CEFAZOLIN PMX 1GM/50ML 50 ML IVPB SCH (04:05)
[2018-09-10] MEDS: NS + 20MEQ KCL 1,000 ML IV SCH ×2 (04:05→08:21)
[2018-09-10 04:19] VITALS: BP 115/72
[2018-09-10] MEDS: TIZANIDINE 4MG TABLET PO SCH (06:36)
[2018-09-10] MEDS ORDERED: TIZA2TAB PO (08:07)
[2018-09-10] MEDS ORDERED: HYDR-3245 PO (08:07)
[2018-09-10 08:12] VITALS: BP 131/75
[2018-09-10] MEDS: SOTALOL 80MG TABLET PO SCH (08:17)
[2018-09-10] MEDS: AMLODIPINE 5 MG TABLET PO SCH (08:18)
[2018-09-10] MEDS: IRBESARTAN 150 MG TABLET PO SCH (08:20)
[2018-09-10] MEDS: SODIUM CHLORIDE FLUSH 10ML SYR IVF SCH (08:20)
[2018-09-10] MEDS ORDERED: FAMOTIDINE 20 MG TABLET PO SCH (09:00)
[2018-09-10] MEDS ORDERED: FENOFIBRATE 145 MG TABLET PO SCH (09:00)
[2018-09-10] MEDS ORDERED: SENNA/DOCUSATE TABLET PO SCH (09:00)
[2018-09-10] MEDS ORDERED: ALLOPURINOL 300 MG TABLET PO SCH (09:00)
== END 2018-09-10 10:35 | disposition home or self-care (01) | DRG 519 ==
LOC: ORIP 07:19 → 4NOR 14:34 → DCLOUNGE 09-10 10:26
PROVIDERS: ADMIT Neurological Surgery; ATTEND Neurological Surgery
PROC: 00NW0ZZ Release Cervical Spinal Cord, Open Approach (ICD-10-PCS; 2018-09-09)
PROC: 01N10ZZ Release Cervical Nerve, Open Approach (ICD-10-PCS; principal; 2018-09-09 11:00)
DX: M48.02 Spinal stenosis, cervical region (principal); M47.12 Other spondylosis with myelopathy, cervical region; I48.91 Unspecified atrial fibrillation; I10 Essential (primary) hypertension; G47.00 Insomnia, unspecified; Z85.46 Personal history of malignant neoplasm of prostate; Z86.73 Personal history of transient ischemic attack (TIA), and cerebral infarction without residual deficits; Z82.49 Family history of ischemic heart disease and other diseases of the circulatory system
CPT/HCPCS: 36415; 72040; 85610; 85730; 95938; 95941; C1713; G0378; J0690; J1100; J1170; J2250; J2405; J2704; J3010; J3480; J0330; J7120

== ENCOUNTER 2019-10-11 12:01 | Outpatient (CLI) | payer MEDICARE ==
[~2019-10-11 12:01] MED LIST changes: -BACITRACIN 50,000 UNIT ONE; -BUPIVACAINE/PF-EPI 0.5% 1:200K ONE; +CYAN-27 PO; -CYAN10005 PO; +INDO50CA15 PO; -INDO50CA5 PO; -IRBE150T25 PO; +IRBE150T9 PO; -IRBE300T16 PO; +IRBE300T8 PO; +IRBE75TA6 PO; +OMEP40CA42 PO; -OMEP40CA6 PO; -THROMBIN 20,000 UNIT VIAL TP ONE; +TIZA2TAB2 PO; +VITA-74 PO; -VITA400C42 PO
[2019-10-11] MEDS ORDERED: NALOXONE 1 MG/ML, 2ML ONE (13:02)
[2019-10-11] MEDS ORDERED: FENTANYL PF 100 MCG/2ML ONE ×2 (13:02)
[2019-10-11] MEDS ORDERED: FLUMAZENIL 0.1 MG/1 ML, 5ML ONE (13:02)
[2019-10-11] MEDS ORDERED: MIDAZOLAM 1 MG/ML, 5ML ONE ×2 (13:02→14:49)
== END 2019-10-11 23:59 | disposition home or self-care (01) ==
LOC: RAD 12:01
PROVIDERS: ATTEND Neurological Surgery
DX: M47.812 Spondylosis without myelopathy or radiculopathy, cervical region (principal); M47.814 Spondylosis without myelopathy or radiculopathy, thoracic region; M51.34 Other intervertebral disc degeneration, thoracic region; M48.04 Spinal stenosis, thoracic region; M48.02 Spinal stenosis, cervical region; M25.78 Osteophyte, vertebrae; I48.91 Unspecified atrial fibrillation; E11.22 Type 2 diabetes mellitus with diabetic chronic kidney disease; I12.9 Hypertensive chronic kidney disease with stage 1 through stage 4 chronic kidney disease, or unspecified chronic kidney disease; N18.2 Chronic kidney disease, stage 2 (mild); Z79.899 Other long term (current) drug therapy; Z86.73 Personal history of transient ischemic attack (TIA), and cerebral infarction without residual deficits; Z90.79 Acquired absence of other genital organ(s)
CPT/HCPCS: 72141; 72146; 99156; 99157; J2250; J3010; J2310

== ENCOUNTER → 2019-10-14 | Outpatient (CLI) | payer MEDICARE ==
[~2019-10-14] MED LIST changes: +REGADENOSON 0.4 MG/5 ML SYRINGE ONE
== END | disposition home or self-care (01) ==
LOC: CFH 08:43
PROVIDERS: ATTEND Internal Medicine Cardiovascular Disease
DX: I48.0 Paroxysmal atrial fibrillation (principal); I10 Essential (primary) hypertension
CPT/HCPCS: 78452; 93017; A9502; J2785

== ENCOUNTER → 2019-12-01 | Outpatient (CLI) | payer MEDICARE ==
[~2019-12-01] MED LIST changes: +AMLO2.5T5 PO; +FENO134C PO; +MELO7.5T31 PO; +MULT-449 PO; -MULT1TAB60 PO; -REGADENOSON 0.4 MG/5 ML SYRINGE ONE; -TIZA2TAB2 PO; +TIZA2TAB4 PO; +[UNRECOGNIZED DRUG - OTHER] PO
[2019-12-01 13:12] LABS: BASOPHILS # (AUTO) 0.04 x10^3/uL (0-0.1); BASOPHILS % (AUTO) 1 % (0-1); EOSINOPHILS # (AUTO) 0.31 x10^3/uL (0-0.4); EOSINOPHILS % (AUTO) 4 % (1-7); LYMPHOCYTES # (AUTO) 1.44 x10^3/uL (1-3.4); LYMPHOCYTES % (AUTO) 17 % (22-44); MD NO; MEAN CORPUSCULAR HEMOGLOBIN 28.4 pg (27.5-34.5); MEAN PLATELET VOLUME 7.1 fL (7.4-10.4); MONOCYTES # (AUTO) 0.77 x10^3/uL (0.2-0.8); MONOCYTES % (AUTO) 9 % (2-9); NEUTROPHILS # (AUTO) 5.85 x10^3/uL (1.8-6.8); NEUTROPHILS % (AUTO) 70 % (42-75); PLATELET COUNT 271 x10^3/uL (130-400); RED BLOOD COUNT 5.36 x10^6/uL (4.38-5.82); RED CELL DISTRIBUTION WIDTH 15.1 % (9.4-14.8)
[2019-12-01 13:28] LABS: ALANINE AMINOTRANSFERASE 23 U/L (12-78); ALBUMIN 3.3 g/dL (3.4-5.0); ANION GAP 5 mmol/L (5-15); CALCIUM 8.7 mg/dL (8.5-10.1); CHLORIDE 107 mmol/L (98-107); CREATININE 1.18 mg/dL (0.7-1.3)
[2019-12-01 13:30] LABS: ALKALINE PHOSPHATASE 113 U/L (45-117); BILIRUBIN,TOTAL 0.5 mg/dL (0.2-1.0); TOTAL PROTEIN 7.5 g/dL (6.4-8.2)
[2019-12-01 13:31] LABS: MICROSCOPIC NOT IND
[2019-12-01 13:40] LABS: INTERNATIONAL NORMALIZED RATIO 0.95 (0.93-1.1); PROTHROMBIN TIME 10.1 Seconds (9.6-11.5)
== END | disposition home or self-care (01) ==
LOC: STAR 11:37
PROVIDERS: ATTEND Neurological Surgery
DX: Z01.818 Encounter for other preprocedural examination (principal); M51.04 Intervertebral disc disorders with myelopathy, thoracic region; M47.14 Other spondylosis with myelopathy, thoracic region; M41.85 Other forms of scoliosis, thoracolumbar region; M48.04 Spinal stenosis, thoracic region; I48.91 Unspecified atrial fibrillation
CPT/HCPCS: 36415; 71046; 72072; 80053; 81003; 85025; 85610; 85730; 93005

== ENCOUNTER 2019-12-14 06:14 | Observation (INO) | payer MEDICARE ==
[~2019-12-14] VITALS: Ht 175.3 cm; Wt 72.7 kg
[~2019-12-14 06:14] MED LIST changes: +BACITRACIN 50,000 UNIT ONE; +BUPIVACAINE/PF-EPI 0.25% 1:200K ONE; +VANCOMYCIN 1,000 MG ONE
[2019-12-14] MEDS ORDERED: MIDAZOLAM 1 MG/ML, 2ML ONE (11:52)
[2019-12-14] MEDS ORDERED: FENTANYL PF 100 MCG/2ML ONE (11:52)
[2019-12-14] MEDS ORDERED: CHLORHEXIDINE 15 ML UDC MM ONE (12:00)
[2019-12-14] MEDS ORDERED: FENTANYL PF 100 MCG/2ML IV PRN (12:30)
[2019-12-14] MEDS ORDERED: HYDROmorphone 1 MG/ML, 1ML INJ IVPush PRN ×2 (12:30→15:00)
[2019-12-14] MEDS ORDERED: LORazepam 2 MG/ML, 1ML IVPush PRN (12:30)
[2019-12-14] MEDS ORDERED: OXYcodone 5 MG/5 ML ORAL.SOL UDC PO PRN (12:30)
[2019-12-14] MEDS ORDERED: MEPERIDINE/PF 25MG/0.5ML IVPush PRN (12:30)
[2019-12-14] MEDS ORDERED: PROMETHAZINE 25 MG/ML, 1ML IVPush PRN (12:30)
[2019-12-14] MEDS ORDERED: PROPOFOL 10 MG/ML, 20ML ONE (12:34)
[2019-12-14] MEDS ORDERED: ONDANSETRON 2MG/ML, 2ML ONE (12:34)
[2019-12-14] MEDS ORDERED: DEXAMETHASONE 4 MG/ML, 1ML ONE (12:34)
[2019-12-14] MEDS ORDERED: GLYCOPYRROLATE 0.2MG/1ML, 5ML ONE (12:34)
[2019-12-14] MEDS ORDERED: ROCURONIUM 10MG/ML,5ML ONE (12:34)
[2019-12-14] MEDS ORDERED: SUCCINYLCHOLINE 20 MG/ML, 10ML ONE (12:34)
[2019-12-14] MEDS ORDERED: NEOSTIGMINE 1 MG/ML, 10ML ONE (12:34)
[2019-12-14] MEDS ORDERED: CEFAZOLIN 1,000 MG ONE (12:34)
[2019-12-14] MEDS ORDERED: LACTATED RINGERS 1,000 ML IV SCH (12:43)
[2019-12-14] MEDS ORDERED: PROPOFOL 50 ML ONE ×2 (13:03→14:12)
[2019-12-14] MEDS ORDERED: EPHEDRINE 50 MG/ML, 1ML ONE (13:23)
[2019-12-14] MEDS ORDERED: hydrALAzine 20 MG/ML, 1ML ONE (13:23)
[2019-12-14] MEDS ORDERED: SENNA/DOCUSATE TABLET PO PRN (15:00)
[2019-12-14] MEDS ORDERED: MEPERIDINE/PF 100 MG/ML IM PRN (15:00)
[2019-12-14] MEDS ORDERED: PHARMACY MAY ADJ FOR RENAL FX MC PRN (15:00)
[2019-12-14] MEDS ORDERED: MAGNESIUM HYDROXIDE 8%, 30ML UDC PO PRN (15:00)
[2019-12-14] MEDS ORDERED: ZOLPIDEM 10MG TABLET PO PRN (15:00)
[2019-12-14] MEDS ORDERED: BISACODYL 10 MG SUPP PR PRN (15:00)
[2019-12-14] MEDS ORDERED: ONDANSETRON 2MG/ML, 2ML IVPush PRN (15:00)
[2019-12-14] MEDS ORDERED: TIZANIDINE 2MG TABLET PO PRN (15:00)
[2019-12-14] MEDS ORDERED: OMEPRAZOLE 20 MG CAPSULE.DR PO PRN (15:00)
[2019-12-14] MEDS ORDERED: DIPHENHYDRAMINE 50 MG/ML, 1ML IVPush PRN (15:00)
[2019-12-14] MEDS ORDERED: PROMETHAZINE 25 MG/ML, 1ML IM PRN (15:00)
[2019-12-14] MEDS ORDERED: METHOCARBAMOL 1,000 MG in DEXTROSE 5% 100 ML IV ONE (15:00)
[2019-12-14] MEDS: NS + 20MEQ KCL 1,000 ML IV SCH (17:51)
[2019-12-14 18:51] VITALS: BP 132/85
[2019-12-14] MEDS: IRBESARTAN 150 MG TABLET PO SCH (19:49)
[2019-12-14] MEDS: CEFAZOLIN PMX 1GM/50ML 50 ML IVPB SCH (19:49)
[2019-12-14] MEDS: AMLODIPINE 2.5 MG TABLET PO SCH (19:50)
[2019-12-14] MEDS: SOTALOL 80MG TABLET PO SCH (19:50)
[2019-12-14] MEDS: SODIUM CHLORIDE FLUSH 10ML SYR IVF SCH (19:50)
[2019-12-14] MEDS ORDERED: CHLORHEXIDINE 15 ML UDC ONE (20:44)
[2019-12-14] MEDS: HYDROcodone/APAP 10/325 MG TABLET PO PRN (21:41)
[2019-12-14 23:12] VITALS: BP 112/71
[2019-12-15 02:51] VITALS: BP 125/83
[2019-12-15] MEDS: CEFAZOLIN PMX 1GM/50ML 50 ML IVPB SCH (04:14)
[2019-12-15] MEDS: HYDROcodone/APAP 10/325 MG TABLET PO PRN ×2 (04:18→08:25)
[2019-12-15] MEDS: NS + 20MEQ KCL 1,000 ML IV SCH (04:18)
[2019-12-15 07:07] VITALS: BP 137/78
[2019-12-15] MEDS: IRBESARTAN 150 MG TABLET PO SCH (08:21)
[2019-12-15] MEDS: AMLODIPINE 2.5 MG TABLET PO SCH (08:22)
[2019-12-15] MEDS: SOTALOL 80MG TABLET PO SCH (08:22)
[2019-12-15] MEDS: SODIUM CHLORIDE FLUSH 10ML SYR IVF SCH (08:25)
== END 2019-12-15 09:15 | disposition home or self-care (01) ==
LOC: OR 06:14 → INTOOBSV 14:49 → 4NE 14:49 → OUT 16:12 → DCLOUNGE 12-15 09:14
PROVIDERS: ADMIT Neurological Surgery; ATTEND Neurological Surgery
DX: Z03.818 Encounter for observation for suspected exposure to other biological agents ruled out (principal); M48.04 Spinal stenosis, thoracic region; M47.14 Other spondylosis with myelopathy, thoracic region; G95.20 Unspecified cord compression; I10 Essential (primary) hypertension; G47.00 Insomnia, unspecified; I48.91 Unspecified atrial fibrillation; Z86.73 Personal history of transient ischemic attack (TIA), and cerebral infarction without residual deficits; Z87.891 Personal history of nicotine dependence; Z85.46 Personal history of malignant neoplasm of prostate; Z79.899 Other long term (current) drug therapy
CPT/HCPCS: 36415; 63003; 72072; 87635; 93005; 95938; 95941; 96365; 96366; 96367; 97162; 97165; G0378; J0330; J0360; J0690; J1100; J2250; J2405; J2704; J2710; J2800; J3010; J3480; J7120; J3370

== ENCOUNTER 2020-05-08 12:01 | Emergency (ER) | payer MEDICARE ==
[~2020-05-08] VITALS: Ht 175.3 cm; Wt 66.0 kg
[~2020-05-08 12:01] MED LIST changes: +ASCO100018 PO; -ASCO10004 PO; -BACITRACIN 50,000 UNIT ONE; -BUPIVACAINE/PF-EPI 0.25% 1:200K ONE; -CALC-690 PO; +CALC1TAB PO; -VANCOMYCIN 1,000 MG ONE
[2020-05-08 12:30] LABS: BASOPHILS % (AUTO) 0 % (0-1); EOSINOPHILS % (AUTO) 0 % (1-7); LYMPHOCYTES % (AUTO) 3 % (22-44); MEAN CORPUSCULAR HEMOGLOBIN 29.1 pg (27.5-34.5); MEAN CORPUSCULAR HGB CONC 33.5 g/dL (33.2-36.2); MEAN PLATELET VOLUME 6.9 fL (7.4-10.4); MONOCYTES % (AUTO) 5 % (2-9); NEUTROPHILS % (AUTO) 92 % (42-75); PLATELET COUNT 447 x10^3/uL (130-400); RED CELL DISTRIBUTION WIDTH 14.4 % (9.4-14.8)
[2020-05-08 12:44] LABS: ANION GAP 7 mmol/L (5-15); CALCIUM 8.7 mg/dL (8.5-10.1); CHLORIDE 98 mmol/L (98-107); CREATININE 1.16 mg/dL (0.7-1.3)
[2020-05-08 13:04] LABS: MD SCAN
--- NOTE | 2020-05-08 14:17 | NUR ---
[facility]UR[facility] RN: RE VITAL, NO ADDITIONAL C/O AT THIS TIME
--- NOTE | 2020-05-08 14:34 | NUR ---
PATIENT TO ROOM FROM LOBBY
[2020-05-08] MEDS ORDERED: SODIUM CHLORIDE FLUSH 10ML SYR IVF ONE (15:30)
[2020-05-08] MEDS ORDERED: LIDOCAINE 2% VISCOUS 15 ML UDC MM ONE ×2 (15:30→18:30)
[2020-05-08] MEDS ORDERED: MAALOX/HYOSCYAMINE/LIDOCAINE 45 ML BTL PO ONE (15:30)
[2020-05-08] MEDS ORDERED: SODIUM CHLORIDE 0.9% 1,000ML IVBOLUS ONE (15:30)
[2020-05-08] MEDS ORDERED: MAALOX/HYOSCYAMINE/LIDOCAINE 45 ML BTL ONE (15:37)
[2020-05-08] MEDS ORDERED: LIDOCAINE 2% VISCOUS 15 ML UDC ONE ×2 (15:37→18:23)
--- NOTE | 2020-05-08 15:39 | NUR ---
C/O "I HAVE A RASH IN MY MOUTH THAT'S JUST KILLING ME" X 1 WEEK. HAS BEEN TAKING PREDNISONE - LAST DOSE 05/06/20 10MG PO. HAS USED BLEACH MOUTH RINSE; ALSO TRIED HYDROGEN PEROXIDE. SAW PCP; SENT TO URGENT CARE; TX UNSUCCESSFUL. PCP THEN SENT PT TO ED. ABLE TO SPEAK IN COMPLETE SENTENCES. TAKING HYDROCODONE 10/325 FOR BACK PAIN - LAST DOSE: YESTERDAY. TAKING TYLENOL 500MG; LAST DOSE AT 1430.
--- NOTE | 2020-05-08 15:46 | NUR ---
VISCOUS LIDOCAINE ORDERED; WILL CONSULT [facility] IF SWISH & SPIT VS SWALLOW.
--- NOTE | 2020-05-08 15:48 | NUR ---
PER [facility]: LIDOCAINE SWISH & SPIT.
--- NOTE | 2020-05-08 16:23 | NUR ---
DR RENTERIA BS FOR EXAM
--- NOTE | 2020-05-08 17:06 | NUR ---
PT REPORT TO JUDITH VANEGAS RN. PT CARE TRANSFERRED.
[2020-05-08] MEDS ORDERED: NYST1000 PO (18:03)
[2020-05-08] MEDS ORDERED: FLUC150T2 PO (18:03)
[2020-05-08 18:24] VITALS: BP 148/87
--- NOTE | 2020-05-08 18:28 | NUR ---
TASK RN: Patient/Caregiver given discharge instructions and they have confirmed that they understand the instructions. Patient ambulatory with steady gait.
== END 2020-05-08 18:29 | disposition home or self-care (01) ==
LOC: ED 17:20
DX: B00.2 Herpesviral gingivostomatitis and pharyngotonsillitis (principal); K05.10 Chronic gingivitis, plaque induced; I10 Essential (primary) hypertension
CPT/HCPCS: 36415; 80048; 85025; 96360; 99283; J7030